=== PATIENT | female | born 1945 | race Caucasian/White ===

== ENCOUNTER → 2016-09-14 | Outpatient (CLI) | payer OTHER ==
[~2016-09-14] MED LIST: AMLODIPINE-BEN1 EAC2 PO; ARIMIDEX1 MG PO; CARDIZEM CD120 MG PO; CIPROFLOXACIN500 M1 PO; EAR HEALTH PLU500 MG PO; ENSURE CLEAR198 ML PO; FLECTOR 1.3%1 PATC1 TD; HYDROCODON-ACE1 EAC7 PO; LATANOPROST2.5 ML RIGHT EYE; LISINOPRIL10 MG PO; LISINOPRIL5 MG PO; METRONIDAZOLE500 MG PO; ONE DAILY FOR1 EAC3 PO; VENTOLIN HFA18 GM IH; ZYRTEC10 M2 PO; [UNRECOGNIZED DRUG - OTHER] PO; [UNRECOGNIZED DRUG - OTHER] PO; [UNRECOGNIZED DRUG - REMARK] PO
[2016-09-14 10:02] LABS: TYPE OF FLUID PLEURAL
[2016-09-14 10:28] LABS: BODY FLUID RBC'S 1000 /MM^3 (0-100); BODY FLUID WBC'S 629 /MM^3 (0-500)
[2016-09-14 10:42] LABS: BODY FLUID LDH 107 IU/L; BODY FLUID PROTEIN 4.5 G/DL
[2016-09-14 10:54] LABS: BODY FLUID EOSINOPHILS 1 % (0-25); MONO RAW COUNT 96; POLY RAW COUNT 3
[2016-09-14 10:56] LABS: MONONUCLEAR WBC'S 92 %; POLYNUCLEAR WBC'S 7 % (0-25)
== END | disposition home or self-care (01) ==
LOC: RAD 08:38 → EDSTATUS 09:00
PROVIDERS: Internal Medicine Pulmonary Disease
PROC: 0W993ZZ Drainage of Right Pleural Cavity, Percutaneous Approach (ICD-10-PCS; principal; 2016-09-14)
DX: J91.8 Pleural effusion in other conditions classified elsewhere (principal)
CPT/HCPCS: 82945; 83615 91; 84157; 87075; 87116; 87205; 87206; 88108; 88305; 89051